=== PATIENT | female | born 1930 | race Caucasian/White ===

== ENCOUNTER → 2021-09-25 | Outpatient (CLI) | payer MEDICARE ==
[~2021-09-25] MED LIST: IOHEXOL 240 MG/ML 50ML VIAL. ONE; IOHEXOL 240 MG/ML 50ML VIAL. PO ONE; IOHEXOL 300 MG/ML 75 ML VIAL. IV ONE
--- NOTE | 2021-09-25 09:30 | RAD ---
EXAM: Renal artery Doppler sonogram. HISTORY: Renal insufficiency. TECHNIQUE: Montiel scale and color Doppler sonographic imaging of the kidneys and renal arteries with sp ectral analysis was performed. COMPARISON: None. FINDINGS: The right kidney measures 8.7 cm [id number]. The left kidney measures 8.2 cm [id number] . There are small simple renal cysts measuring 2.6 cm on the right and 1.5 cm on the left. There is n o hydronephrosis. The bladder is not visualized. There are normal renal artery peak systolic velociti es and renal artery to aorta velocity ratios. IMPRESSION: 1. Mild left greater than right renal atrophy. 2. Bilateral simple renal cysts. Follow-up is not routinely performed for simple cysts. 3. No Doppler evidence of stenosis involving the renal arteries. 4. Nonvisualization of the bladder due to the post void status of the patient. Electronically signed by: Rubina Ramirez MD (09/25/2021 9:28 AM) [id number]
--- NOTE | 2021-09-25 09:34 | RAD ---
EXAM: Abdomen sonogram. HISTORY: Weight loss. Abnormal liver function laboratory values. TECHNIQUE: Sonographic imaging of the abdomen was performed. COMPARISON: None. FINDINGS: The liver is normal in size. No focal hepatic lesion is seen. The common bile duct is barbara l in caliber. The gallbladder is surgically absent. There is mild right renal atrophy. There is a sim ple right renal cyst measuring 2.7 cm. There is no hydronephrosis. The pancreas, inferior vena cava a nd aorta are partially obscured due to bowel gas. IMPRESSION: 1. Cholecystectomy. 2. Mild right renal atrophy and simple right renal cyst. Follow up is not routinely performed for sim ple cysts. 3. Partially obscured midline structures due to bowel gas. Electronically signed by: Rubina Ramirez MD (09/25/2021 9:32 AM) [id number]
--- NOTE | 2021-09-25 09:45 | RAD ---
EXAM: Abdomen and pelvis CT with intravenous contrast. HISTORY: Epigastric pain. Unexplained weight loss. TECHNIQUE: Computed tomographic images of the abdomen and pelvis were obtained following the administ ration of intravenous contrast. Multiplanar reformatting was performed. *One or more of the following individualized dose reduction techniques were utilized for this examina tion: 1. Automated exposure control. 2. Adjustment of the mA and/or kV according to patient size. 3. Use of iterative reconstruction technique. COMPARISON: None. FINDINGS: Evaluation of the lower thorax demonstrates left greater than right lower lobe atelectasis or scarring. There is a small hiatal hernia or patulous distal esophagus containing air and contrast material. No hepatic lesion is seen. The gallbladder is absent. The pancreas, spleen and adrenal glan ds are unremarkable. There is renal atrophy. There are simple renal cysts, the largest of which is seen on the right measu ring 2.8 cm. There is no hydronephrosis. There is circumferential wall thickening involving the ascen ding colon. There is no significant surrounding inflammatory stranding. There is colonic diverticulos is. There is moderate stool throughout the colon. The uterus is absent. The bladder is unremarkable. The adnexal regions are unremarkable. The aorta is normal in caliber. There is no lymphadenopathy. There are degenerative changes throughout the spine and involving both hips. There is bone demineralization. IMPRESSION: 1. Small hiatal hernia or patulous distal esophagus containing air and contrast material. Given a his tory of epigastric pain, correlation with endoscopy or an esophagram may be useful. 2. Colonic diverticulosis. 3. Circumferential wall thickening involving the ascending colon. This may be due to the sequela of p rior inflammation. There is no surrounding stranding to suggest acute colitis. 4. Renal atrophy and simple renal cysts. Follow-up is is not routinely performed for simple cysts.. Electronically signed by: Rubina Ramirez MD (09/25/2021 9:43 AM) [id number]
== END ==
LOC: US 07:53
PROVIDERS: ATTEND Family Medicine
DX: N28.1 Cyst of kidney, acquired (principal); N26.1 Atrophy of kidney (terminal); K57.30 Diverticulosis of large intestine without perforation or abscess without bleeding; M47.816 Spondylosis without myelopathy or radiculopathy, lumbar region; M16.0 Bilateral primary osteoarthritis of hip; N18.30 Chronic kidney disease, stage 3 unspecified; R68.81 Early satiety; R63.4 Abnormal weight loss; R17 Unspecified jaundice; Z90.49 Acquired absence of other specified parts of digestive tract
CPT/HCPCS: 74177; 76705; 93975; Q9966; Q9967